=== PATIENT | male | born 1990 | race Caucasian/White ===

== ENCOUNTER 2016-05-23 19:16 | Emergency (ER) | payer SELFPAY ==
[2016-05-23 19:30] VITALS: BP 163/83
[2016-05-23] MEDS ORDERED: Ibuprofen TAB* 400 MG PO ONE (19:42)
--- NOTE | 2016-05-23 20:13 | ED ---
Lower Extremity - HPI Summary HPI Summary: Patient was walking down a hill when he slipped on an icy patch of ground. His ankle inverted and he heard a pop. He was unable to bear weight after the fall - History of Current Complaint Chief Complaint: EDExtremityLower Stated Complaint: RT LEG PAIN Time Seen by Provider: 05/23/16 19:26 Hx Obtained From: Patient Mechanism Of Injury: Twisted Onset of Pain: Hours Onset/Duration: Still Present Severity Initially: Severe Severity Currently: Severe Pain Intensity: 10 Timing: Constant Location: Is Discrete @ - Right ankle Character Of Pain: Sharp, Aching, Stiffness Associated Signs And Symptoms: Positive: Swelling - mild Aggravating Factor(s): Standing, Ambulation, Movement Alleviating Factor(s): Nothing Able to Bear Weight: No - Allergies/Home Medications Allergies/Adverse Reactions: Allergies Allergy/AdvReac Type Severity Reaction Status Date / Time Rizatriptan [From Maxalt] Allergy Severe CHEST PAIN Verified 12/30/15 16:26 Sumatriptan [From Imitrex] Allergy Severe CHEST PAIN Verified 12/30/15 16:26 BEE STING Allergy Severe Anaphylatic Uncoded 12/30/15 16:26 Shock PMH/Surg Hx/FS Hx/Imm Hx Endocrine/Hematology History: Denies: Hx Anticoagulant Therapy, Hx Diabetes, Hx Thyroid Disease Cardiovascular History: Reports: Hx Hypertension - PT STATES NOT FOR HIGH BLOOD PRESSURE FOR PAIN ONLY Denies: Hx Congestive Heart Failure, Hx Pacemaker/ICD Respiratory History: Denies: Hx Asthma, Hx Chronic Obstructive Pulmonary Disease (COPD) History: Denies: Hx Dialysis, Hx Renal Disease, Other Problems/Disorders Sensory History: Reports: Hx Contacts or Glasses Denies: Hx Hearing Aid Opthamlomology History: Reports: Hx Contacts or Glasses Neurological History: Denies: Hx Dementia, Hx Seizures Comment Only: Other Neuro Impairments/Disorders - chiari malformation Psychiatric History: Reports: Hx Substance Abuse Denies: Hx Panic Disorder - Surgical History Surgery Procedure, Year, and Place: SURGERY FOR CHIARI MALFORMATION 11[place]2011 [place] [facility] [place] Immunization History Date of Tetanus Vaccine: 9 years ago Date of Influenza Vaccine: never Infectious Disease History: No Infectious Disease History: Denies: Hx Hepatitis, Hx Human Immunodeficiency Virus (HIV), Traveled Outside the [place] in Last 30 Days - Family History Known Family History: Positive: Cardiac Disease, Diabetes, Seizure Disorder - epilepsy - Social History Occupation: Employed Part-time Lives: Alone Alcohol Use: Rare Substance Use Type: Reports: None, Prescribed Smoking Status (MU): Light Every Day Tobacco Smoker Cessation Counseling: Patient Advised to Stop Review of Systems Positive: Myalgia, Decreased ROM, Edema - mild Negative: Bruising Negative: Weakness, Paresthesia, Numbness All Other Systems Reviewed And Are Negative: Yes Physical Exam Triage Information Reviewed: Yes Vital Signs On Initial Exam: Initial Vitals Temp Pulse Resp BP Pulse Ox 97.6 F 96 16 163/83 97 05/23/16 19:23 05/23/16 19:23 05/23/16 19:23 05/23/16 19:23 05/23/16 19:23 Vital Signs Reviewed: Yes Appearance: Positive: Well-Appearing, Pain Distress, Obese Skin: Positive: Warm, Skin Color Reflects Adequate Perfusion, Dry, Soft Head/Face: Positive: Normal Head/Face Inspection Eyes: Positive: EOMI, KRIS, Conjunctiva Clear ENT: Positive: Hearing grossly normal Respiratory/Lung Sounds: Positive: Breath Sounds Present Cardiovascular: Positive: RRR Musculoskeletal: Positive: Limited @ - dorsiflexion, plantar flexion, inversion and eversion limited due to pain, Pain @ - TTP lateral malleoli, ATFL, Edema Right - mild lateral malleoli Neurological: Positive: Sensory/Motor Intact, Alert, Oriented to Person Place, Time, NV Bundle Intact Distally, Unable to Assess Gait Psychiatric: Positive: Affect/Mood Appropriate AVPU Assessment: Alert Diagnostics - Vital Signs Vital Signs Temp Pulse Resp BP Pulse Ox 05/23/16 19:23 97.6 F 96 16 163/83 97 - Laboratory Lab Statement: Any lab studies that have been ordered have been reviewed, and results considered in the medical decision making process. - Radiology No standard instances Xray Interpretation: No Acute Changes Radiology Interpretation Completed By: Radiologist Lower Extremity Course/Dx - Diagnoses Differential Diagnosis/HQI/PQRI: Positive: Arthritis, Bursitis, Cellulitis, Contusion, Dislocation, Fracture (Closed), Sprain, Strain Provider Diagnoses: Right ankle sprain Discharge - Discharge Plan Condition: Stable Disposition: HOME Patient Education Materials: Ankle Sprain (ED), Ankle Stirrup Splint (ED) [place] [facility] [place] [place] [place]] Additional Instructions: Wear your splint to protect you as your pain improves. You can discontinue use of the splint and crutches as your pain allows. Come out of the splint several times daily to perform gentle range of motion exercises to avoid stiffness. Elevate your ankle above your heart and apply ice for 20 minutes several times daily to decrease swelling and pain. Use ibuprofen 600mg three times daily with meals for the next 3-5 days to decrease swelling and pain as well. Follow-up with your primary care provider if your symptoms do not begin to improve in the next 5-7 days. Return to the emergency department if your symptoms worsen.
--- NOTE | 2016-05-23 20:20 | RAD ---
Indication: Lateral RIGHT ankle pain following inversion injury. Limited range of motion. Unable to flex toes. Comparison: No relevant prior exams available on the [facility] [place] [facility]. Technique: AP, mortise, and lateral views RIGHT ankle. Report: Mild soft tissue swelling over the lateral malleolus. Negative for fracture, osteochondral lesion, or malalignment. No suggestion of joint effusion. IMPRESSION: Mild lateral soft tissue swelling without additional finding.
== END 2016-05-23 21:45 | disposition home or self-care (01) ==
LOC: ED 19:16
DX: S93.401A Sprain of unspecified ligament of right ankle, initial encounter (principal); W00.0XXA Fall on same level due to ice and snow, initial encounter; Y93.01 Activity, walking, marching and hiking; Y92.828 Other wilderness area as the place of occurrence of the external cause; I10 Essential (primary) hypertension; F17.200 Nicotine dependence, unspecified, uncomplicated; Z88.8 Allergy status to other drugs, medicaments and biological substances
CPT/HCPCS: 99282; A9270-GY

== ENCOUNTER 2017-02-22 11:16 | Emergency (ER) | payer OTHER ==
--- NOTE | 2017-02-22 12:24 | RAD ---
INDICATION: Cough. COMPARISON: Comparison is made with a prior chest x-ray study from September 26, 2011. TECHNIQUE: Dual-energy PA and lateral views of the chest were obtained. FINDINGS: The heart is within normal limits in size. Mediastinal and hilar contours appear within normal limits. There is minimal subsegmental atelectasis at the left lung base. The lungs are otherwise clear. No pleural effusion is seen. IMPRESSION: NO EVIDENCE FOR ACTIVE CARDIOPULMONARY DISEASE.
[2017-02-22] MEDS ORDERED: Azithromycin TAB* 250 MG PO ONE (12:26)
[2017-02-22 13:25] VITALS: BP 131/85
--- NOTE | 2017-02-23 08:34 | ED ---
Femi Vargas Angela, scribed for Hever Marie MD on 02/22/17 at 1147 . Respiratory - HPI Summary HPI Summary: This pt is a 27 y/o male presenting to [facility] c/o productive cough x4 weeks. Pt states he had a cold at the end of January and had a fever associated. Since then, his fever has been intermittent. He describes his productive cough as feeling "like there is broken glass." He reports associated SOB (secondary to cough) and headache. Pt denies chest pain, nausea, vomiting, abd pain. Pt has an epi pen for bee stings. PMHx: psoriasis. - History of Current Complaint Chief Complaint: EDUpperRespComplaint Stated Complaint: COUGH, WORSENING/ HEADACHE Time Seen by Provider: 02/22/17 11:42 Hx Obtained From: Patient Onset/Duration: Lasting Weeks, Still Present Timing: Constant Pain Intensity: 3 - out of 10 in severity Character: Cough (Productive) Aggravating Factor(s): Nothing Alleviating Factor(s): Nothing Associated Signs and Symptoms: Fever - intermittent, SOB - Allergy/Home Medications Allergies/Adverse Reactions: Allergies Allergy/AdvReac Type Severity Reaction Status Date / Time Rizatriptan [From Maxalt] Allergy Severe CHEST PAIN Verified 10/19/16 11:44 Sumatriptan [From Imitrex] Allergy Severe CHEST PAIN Verified 10/19/16 11:44 Latex Allergy Rash Verified 02/22/17 11:31 BEE STING Allergy Severe Anaphylatic Uncoded 10/19/16 11:44 Shock PMH/Surg Hx/FS Hx/Imm Hx Endocrine/Hematology History: Denies: Hx Anticoagulant Therapy, Hx Diabetes, Hx Thyroid Disease Cardiovascular History: Reports: Hx Hypertension - PT STATES NOT FOR HIGH BLOOD PRESSURE FOR PAIN ONLY Denies: Hx Congestive Heart Failure, Hx Pacemaker/ICD Respiratory History: Denies: Hx Asthma, Hx Chronic Obstructive Pulmonary Disease (COPD) History: Denies: Hx Dialysis, Hx Renal Disease, Other Problems/Disorders Sensory History: Reports: Hx Contacts or Glasses Denies: Hx Hearing Aid Opthamlomology History: Reports: Hx Contacts or Glasses Neurological History: Denies: Hx Dementia, Hx Seizures Comment Only: Other Neuro Impairments/Disorders - chiari malformation Psychiatric History: Reports: Hx Substance Abuse Denies: Hx Panic Disorder - Surgical History Surgery Procedure, Year, and Place: SURGERY FOR CHIARI MALFORMATION 11/2011 LAMINECTOMY AND CRANIECTOMY [place] [facility] [place] [facility] [place] TESTICULAR SURGERY TO REMOVE CYSTS FROM SURFACE - Immunization History Date of Tetanus Vaccine: 9 years ago Date of Influenza Vaccine: never Infectious Disease History: No Infectious Disease History: Denies: Hx Hepatitis, Hx Human Immunodeficiency Virus (HIV), Traveled Outside the [place] in Last 30 Days - Family History Known Family History: Positive: Cardiac Disease, Diabetes, Seizure Disorder - epilepsy - Social History Alcohol Use: Occasionally Substance Use Type: Reports: None, Prescribed Smoking Status (MU): Light Every Day Tobacco Smoker Review of Systems Positive: Fever - intermittent. Negative: Chills Eyes: Negative ENT: Negative Negative: Chest Pain Positive: Shortness Of Breath - secondary to cough, Cough - productive Gastrointestinal: Negative Genitourinary: Negative Musculoskeletal: Negative Positive: Headache All Other Systems Reviewed And Are Negative: Yes Physical Exam - Summary Physical Exam Summary: VITAL SIGNS: Reviewed. GENERAL: Patient is a well-developed and nourished male who is lying comfortable in the stretcher. Patient is not in any acute respiratory distress. HEAD AND FACE: No signs of trauma. No ecchymosis, hematomas or skull depressions. No sinus tenderness. EYES: PERRLA, EOMI x 2, No injected conjunctiva, no nystagmus. EARS: Hearing grossly intact. Ear canals and tympanic membranes are within normal limits. MOUTH: Oropharynx within normal limits. NECK: Supple, trachea is midline, no adenopathy, no JVD, no carotid bruit, no c- spine tenderness, neck with full ROM. CHEST: Symmetric, no tenderness at palpation LUNGS: There are crackles heard at both bases of the lungs with some slight wheezing. CVS: Regular rate and rhythm, S1 and S2 present, no murmurs or gallops appreciated. ABDOMEN: Soft, non-tender. No signs of distention. No rebound no guarding, and no masses palpated. Bowel sounds are normal. EXTREMITIES: FROM in all major joints, no edema, no cyanosis or clubbing. NEURO: Alert and oriented x 3. No acute neurological deficits. Speech is normal and follows commands. SKIN: Dry and warm Triage Information Reviewed: Yes Vital Signs On Initial Exam: Initial Vitals Temp Pulse Resp BP Pulse Ox 97.9 F 101 20 149/91 97 02/22/17 11:22 02/22/17 11:22 02/22/17 11:22 02/22/17 11:22 02/22/17 11:22 Vital Signs Reviewed: Yes - [place] Coma Scale Coma Scale Total: 15 Diagnostics - Vital Signs Vital Signs Temp Pulse Resp BP Pulse Ox 02/22/17 11:22 97.9 F 101 20 149/91 97 - Laboratory Lab Statement: Any lab studies that have been ordered have been reviewed, and results considered in the medical decision making process. - Radiology Chest XR Xray Interpretation: No Acute Changes - IMPRESSION: No evidence for active cardiopulmonary disease. ED physician has reviewed this radiology report and agrees. Radiology Interpretation Completed By: Radiologist Disposition - Course Assessment/Plan: This pt is a 27 y/o male presenting to [facility] c/o productive cough x4 weeks. Pt states he had a cold at the end of January and had a fever associated. Since then, his fever has been intermittent. He describes his productive cough as feeling "like there is broken glass." He reports associated SOB (secondary to cough) and headache. Pt denies chest pain, nausea, vomiting, abd pain. Pt has an epi pen for bee stings. PMHx: psoriasis. Chest XR shows no evidence for active cardiopulmonary disease. In the ED course, the pt has a productive cough with yellow phlegm, therefore, I think he has bronchitis. He was started on azithromycin and Tessalon tablets. He will be discharged home with follow up from his PCP. Pt is hemodynamically stable, alert and oriented x3. - Diagnoses Provider Diagnoses: Bronchitis Discharge - Discharge Plan Condition: Stable Disposition: HOME Prescriptions: Azithromycin TAB* [Zithromax TAB (Z-MADHAVI) 250 mg #6 tabs] 250 mg PO DAILY #4 tab Benzonatate CAP* [Tessalon 100 MG CAP*] 100 mg PO TID #12 cap Patient Education Materials: Acute Bronchitis (ED) Referrals: Fernando Pena MD [Primary Care Provider] - Additional Instructions: Please follow up with your primary care provider. RETURN TO THE ED FOR ANY WORSENING SYMPTOMS. The documentation as recorded by the Femi dias Angela accurately reflects the service I personally performed and the decisions made by , Hever Marie MD.
== END 2017-02-22 13:24 | disposition home or self-care (01) ==
LOC: ED 11:16
DX: J40 Bronchitis, not specified as acute or chronic (principal); Z88.8 Allergy status to other drugs, medicaments and biological substances; Z91.030 Bee allergy status; Z91.040 Latex allergy status; F17.210 Nicotine dependence, cigarettes, uncomplicated
CPT/HCPCS: 71020; 87070; 87205; 99282; A9270-GY

== ENCOUNTER 2017-04-02 22:52 | Emergency (ER) | payer OTHER ==
[2017-04-03] MEDS ORDERED: Ketorolac INJ* 30 MG/ML 1 ML VIAL IV PUSH ONE (01:37)
[2017-04-03] MEDS ORDERED: NS 0.9% 1000 ML* 1,000 ML IV ONE (01:37)
[2017-04-03] MEDS ORDERED: Tamsulosin CAP* 0.4 MG PO ONE (01:42)
--- NOTE | 2017-04-03 01:42 | ED ---
GI/ HPI - HPI Summary HPI Summary: 27M presents with right flank pain today. He states pain has moved to right abdomen. He denies any testicular pain. He denies any hematuria, dysuria, frequency, or urgency. He denies any nausea, vomiting, or fever. He denies any diarrhea or constipation. He has never had this pain before. no previous abdominal surgeries. took some ibuprofen with minimal relief. normal appetite. No history of kidney stones. has history of HTN. - History of Current Complaint Chief Complaint: EDFlankPain Time Seen by Provider: 04/03/17 01:29 Stated Complaint: ABD PAIN/BACK PAIN Pain Intensity: 8 - Allergy/Home Medications Allergies/Adverse Reactions: Allergies Allergy/AdvReac Type Severity Reaction Status Date / Time Rizatriptan [From Maxalt] Allergy Severe CHEST PAIN Verified 04/03/17 02:15 Sumatriptan [From Imitrex] Allergy Severe CHEST PAIN Verified 04/03/17 02:15 Latex Allergy Rash Verified 04/03/17 02:15 BEE STING Allergy Severe Anaphylatic Uncoded 04/03/17 02:15 Shock PMH/Surg Hx/FS Hx/Imm Hx Endocrine/Hematology History: Denies: Hx Anticoagulant Therapy, Hx Diabetes, Hx Thyroid Disease Cardiovascular History: Reports: Hx Hypertension - PT STATES NOT FOR HIGH BLOOD PRESSURE FOR PAIN ONLY Denies: Hx Congestive Heart Failure, Hx Pacemaker/ICD Respiratory History: Denies: Hx Asthma, Hx Chronic Obstructive Pulmonary Disease (COPD) History: Denies: Hx Dialysis, Hx Renal Disease, Other Problems/Disorders Sensory History: Reports: Hx Contacts or Glasses Denies: Hx Hearing Aid Opthamlomology History: Reports: Hx Contacts or Glasses Neurological History: Denies: Hx Dementia, Hx Seizures Comment Only: Other Neuro Impairments/Disorders - chiari malformation Psychiatric History: Reports: Hx Substance Abuse Denies: Hx Panic Disorder - Surgical History Surgery Procedure, Year, and Place: SURGERY FOR CHIARI MALFORMATION 11/2011 [place]AMINECTOMY [place]CTOMY [place] [facility] TESTICULAR SURGERY TO REMOVE CYSTS FROM SURFACE - Immunization History Date of Tetanus Vaccine: 9 years ago Date of Influenza Vaccine: never Infectious Disease History: No Infectious Disease History: Denies: Hx Hepatitis, Hx Human Immunodeficiency Virus (HIV), Traveled Outside the [place] in Last 30 Days - Family History Known Family History: Positive: Cardiac Disease, Diabetes, Seizure Disorder - epilepsy - Social History Alcohol Use: Occasionally Substance Use Type: Reports: None, Prescribed Hx Tobacco Use: Yes Smoking Status (MU): Light Every Day Tobacco Smoker Review of Systems Negative: Fever Negative: Chest Pain Negative: Shortness Of Breath Positive: Abdominal Pain. Negative: Vomiting, Diarrhea, Nausea Positive: flank pain All Other Systems Reviewed And Are Negative: Yes Physical Exam Triage Information Reviewed: Yes Vital Signs On Initial Exam: Initial Vitals Temp Pulse Resp BP Pulse Ox 97.7 F 103 16 136/90 98 04/02/17 22:59 04/02/17 22:59 04/02/17 22:59 04/02/17 22:59 04/02/17 22:59 Vital Signs Reviewed: Yes Appearance: Positive: Well-Appearing Skin: Positive: Warm, Dry Head/Face: Positive: Normal Head/Face Inspection Eyes: Positive: Normal, EOMI, KRIS, Conjunctiva Clear ENT: Positive: Normal ENT inspection, Pharynx normal, TMs normal Respiratory/Lung Sounds: Positive: Clear to Auscultation, Breath Sounds Present Cardiovascular: Positive: Normal, RRR Abdomen Description: Positive: Soft, CVA Tenderness (R), Other: - mild right sided abdominal tenderness Bowel Sounds: Positive: Present Musculoskeletal: Positive: Normal Neurological: Positive: Normal Psychiatric: Positive: Normal Diagnostics - Vital Signs Vital Signs Temp Pulse Resp BP Pulse Ox 04/02/17 22:59 97.7 F 103 16 136/90 98 - Laboratory Result Diagrams: 04/03/17 02:55 04/03/17 02:55 Lab Statement: Any lab studies that have been ordered have been reviewed, and results considered in the medical decision making process. - CT abd CT Interpretation: Positive (See Comments) - questionable minimial hydronephrosis with punctate less than 1mm, stone in proximal right urter. 5mm stone in lower pole the right kidney CT Interpretation Completed By: Radiologist CARLEE Course/Dx - Course Course Of Treatment: 27M presents with right flank pain today. He states pain has moved to right abdomen. He denies any testicular pain. He denies any hematuria, dysuria, frequency, or urgency. He denies any nausea, vomiting, or fever. He denies any diarrhea or constipation. He has never had this pain before. no previous abdominal surgeries. took some ibuprofen with minimal relief. normal appetite. No history of kidney stones. has history of HTN. exam pos CVA tenderness right. tender on right side abdomen. labs normal wbc. no infection urine. CT shows small 1mm stone. will treat with pain medication, flomax, zofran, and urology referral. patient understand and agrees with plan. - Diagnoses Differential Diagnoses - Male: Appendicitis, Pyelonephritis, Ureteral Calculi, Urinary Tract Infection Provider Diagnoses: Kidney stone Discharge - Discharge Plan Condition: Good Disposition: HOME Prescriptions: Ondansetron ODT TAB* [Zofran 4 MG Odt TAB*] 4 mg PO Q6H PRN #10 tab.odt PRN Reason: Nausea oxyCODONE/Acetamin 5/325 MG* [Percocet 5/325 TAB*] 1 tab PO Q6H PRN #10 tab MDD 4 PRN Reason: Pain Tamsulosin CAP* [Flomax CAP*] 0.4 mg PO DAILY #5 cap Patient Education Materials: Kidney Stones (ED) Referrals: Fernando Pena MD [Primary Care Provider] - Bebeto Hawthorne MD [Medical Doctor] - Additional Instructions: Take ibuprofen every 6 hours and narcotic as needed every 6 hours Take Zofran every 6 hours for nausea as needed Take Flomax daily starting tomorrow, first dose given in ED until stone expelled , make sure stand up slowly Follow up with urology, call office tomorrow for appointment Strain urine until collect stone Return to ED if unable to manage pain at home, develop fever, or any new or worsening symptoms
[2017-04-03] MEDS ORDERED: oxyCODONE/Acetamin 5/325 MG* TAB PO ONE ×2 (02:29→03:18)
[2017-04-03 02:54] LABS: ALT 54 U/L (7-52); Albumin 4.1 g/dL (3.2-5.2); Alkaline Phosphatase 73 U/L (34-104); BUN/Creatinine Ratio 13.6 (8-20); Blood Urea Nitrogen 11 mg/dL (6-24); CO2 Carbon Dioxide 23 mmol/L (22-32); Calcium 9.2 mg/dL (8.6-10.3); Chloride 102 mmol/L (101-111); EGFR Non-African American 114.3 (>60); Globulin 3.1 g/dL (2-4); Glucose 102 mg/dL (70-100); Lipase 23 U/L (11.0-82.0); Sodium 132 mmol/L (133-145); Total Protein 7.2 g/dL (6.4-8.9)
[2017-04-03 02:56] LABS: Anion Gap 7 mmol/L (2-11)
[2017-04-03 03:04] LABS: Hematocrit 46 % (42-52); Hemoglobin 15.8 g/dl (14.0-18.0); Mean Corpuscular HGB Conc 35 g/dl (31-36); Mean Corpuscular Hemoglobin 32 pg (27-31); Mean Corpuscular Volume 93 fL (80-94); Mean Platelet Volume 7 um3 (7.4-10.4); Red Blood Count 4.89 10^6/ul (4.0-5.4); Red Cell Distribution Width 13 % (10.5-15); White Blood Count 10.5 10^3/ul (3.5-10.8)
[2017-04-03 03:08] LABS: Urine Bacteria Absent (Absent); Urine Bilirubin Negative (Negative); Urine Glucose Negative (Negative); Urine Nitrite Negative (Negative)
[2017-04-03] MEDS ORDERED: Ondansetron ODT TAB* 4 MG PO ONE (03:19)
[2017-04-03 04:04] VITALS: BP 131/84
--- NOTE | 2017-04-03 08:12 | RAD ---
Indication: Right flank pain, back pain. CT of the abdomen and pelvis was performed without oral or IV contrast demonstration. Coronal and sagittal reconstructed images were obtained. Lung bases demonstrate no pleural fluid, nodules or masses. Heart is of normal size without evidence of pericardial effusion. Liver is normal in size. No focal lesions or intrahepatic ductal dilatation is noted. The gallbladder demonstrates no calcified gallstones. No pericholecystic fluid or wall thickening is identified. The common duct is not dilated. The spleen is normal in size. The pancreas demonstrates no mass or pancreatic ductal dilatation. The common duct is not dilated. No adrenal lesions are noted. Minimal fullness of the right renal collecting system. There is a tiny 1 mm calculi in the proximal right ureter at approximately the L3 level. Additional calculi measuring 6 mm in the lower pole of the right kidney. The left renal collecting system is unremarkable. No retroperitoneal adenopathy is noted. No dilated loops of bowel are noted. CT of the pelvis demonstrates no retroperitoneal or pelvic lymphadenopathy. The colon is filled with stool. No dilated loops of bowel are noted the appendix is visualized and is normal. No pelvic adenopathy is noted. The urinary bladder is otherwise unremarkable. There is suggestion of broad-based protrusion asymmetric towards the left resulting in left foraminal stenosis. I cannot totally exclude impingement of the left descending S1 nerve root. IMPRESSION: 1 mm calculus at the proximal ureter at the L3 level. Calculus in the lower pole of the right kidney measuring up to 6 mm. Broad-based protrusion at L5-S1 with focal protrusion. There is suggestion of left foraminal stenosis.
== END 2017-04-03 04:00 | disposition home or self-care (01) ==
LOC: ED 22:52
DX: N20.0 Calculus of kidney (principal); R10.84 Generalized abdominal pain; F17.210 Nicotine dependence, cigarettes, uncomplicated
CPT/HCPCS: 36415; 74176; 80053; 81003; 81015; 83690; 85025; 86141; 99285; A9270-GY

== ENCOUNTER 2017-10-21 22:29 | Emergency (ER) | payer OTHER ==
[2017-10-22] MEDS ORDERED: Bacitracin OINTMENT* 0.5% 0.5 oz TUBE TOPICAL ONE (00:27)
--- NOTE | 2017-10-22 00:57 | ED ---
Skin Complaint - HPI Summary HPI Summary: Complains of wound and pain at volar base of fifth digit on left foot starting today. Denies trauma. Medical history is psoriasis. Denies fever, redness, purulent drainage, swelling to left lower extremity. - History of Current Complaint Chief Complaint: EDExtremityLower Time Seen by Provider: 10/21/17 23:45 Stated Complaint: LT PINKY TOE INJURY Hx Obtained From: Patient Onset/Duration: Started Hours Ago Timing: Constant Onset Severity: Mild Current Severity: Moderate Pain Intensity: 6 Pain Scale Used: 0-10 Numeric Associated Signs & Symptoms: Negative - Allergy/Home Medications Allergies/Adverse Reactions: Allergies Allergy/AdvReac Type Severity Reaction Status Date / Time bee venom protein (honey bee) Allergy Anaphylatic Verified 10/21/17 22:39 Shock latex Allergy Rash Verified 10/21/17 22:39 rizatriptan [From Maxalt] Allergy See Comment Verified 10/21/17 22:39 sumatriptan [From Imitrex] Allergy See Comment Verified 10/21/17 22:39 Home Medications: Home Medications Albuterol HFA INHALER* [Ventolin HFA Inhaler*] 2 puff INH Q6H PRN 10/21/17 [ History Confirmed 10/21/17] Budesonide Flexhaler 180 (NF) [Pulmicort Flexhaler 180 mcg/act (NF)] 180 mcg IN Q24HR PRN 10/21/17 [History Confirmed 10/21/17] Cetirizine* [ZyrTEC 10 MG TAB*] 10 mg PO DAILY 10/21/17 [History Confirmed 10/21] Gabapentin 600 mg PO BEDTIME 10/21/17 [History Confirmed 10/21/17] Gabapentin [Neurontin] 300 mg PO TID 10/21/17 [History Confirmed 10/21/17] Prochlorperazine TAB* [Compazine Tab*] 10 mg PO Q6H PRN 10/21/17 [History Confirmed 10/21/17] Varenicline Tartrate [Chantix] 1 mg PO BID 10/21/17 [History Confirmed 10/21/17] PMH/Surg Hx/FS Hx/Imm Hx Endocrine/Hematology History: Denies: Hx Anticoagulant Therapy, Hx Diabetes, Hx Thyroid Disease Cardiovascular History: Reports: Hx Hypertension - PT STATES NOT FOR HIGH BLOOD PRESSURE FOR PAIN ONLY Denies: Hx Congestive Heart Failure, Hx Pacemaker/ICD Respiratory History: Denies: Hx Asthma, Hx Chronic Obstructive Pulmonary Disease (COPD) History: Reports: Hx Kidney Stones - RIGHT Denies: Hx Dialysis, Hx Renal Disease, Other Problems/Disorders Sensory History: Reports: Hx Contacts or Glasses Denies: Hx Hearing Aid Opthamlomology History: Reports: Hx Contacts or Glasses Neurological History: Denies: Hx Dementia, Hx Seizures Comment Only: Other Neuro Impairments/Disorders - chiari malformation Psychiatric History: Reports: Hx Substance Abuse Denies: Hx Panic Disorder - Surgical History Surgery Procedure, Year, and Place: SURGERY FOR CHIARI MALFORMATION 11/2011 [place] [facility] [place] TESTIC[place] TO REMOVE CYSTS FROM SURFACE - Immunization History Date of Tetanus Vaccine: 9 years ago Date of Influenza Vaccine: never Infectious Disease History: No Infectious Disease History: Denies: Hx Hepatitis, Hx Human Immunodeficiency Virus (HIV), Traveled Outside the [place] in Last 30 Days - Family History Known Family History: Positive: Cardiac Disease, Diabetes, Seizure Disorder - epilepsy - Social History Alcohol Use: Occasionally Substance Use Type: Reports: None Hx Tobacco Use: Yes Smoking Status (MU): Light Every Day Tobacco Smoker Review of Systems Constitutional: Negative Eyes: Negative ENT: Negative Cardiovascular: Negative Respiratory: Negative Gastrointestinal: Negative Genitourinary: Negative Musculoskeletal: Negative Skin: Negative Neurological: Negative Psychological: Normal All Other Systems Reviewed And Are Negative: Yes Physical Exam - Summary Physical Exam Summary: 1 cm area of superficial skin separation at volar base of left fifth digit. No erythema, extra warmth, swelling, bleeding, deformity noted. Wound clean and dry. Triage Information Reviewed: Yes Vital Signs On Initial Exam: Initial Vitals Temp Pulse Resp BP Pulse Ox 98.9 F 112 18 125/95 96 10/21/17 22:31 10/21/17 22:31 10/21/17 22:31 10/21/17 22:31 10/21/17 22:31 Vital Signs Reviewed: Yes Appearance: Positive: Well-Appearing Skin: Positive: Warm Head/Face: Positive: Normal Head/Face Inspection Eyes: Positive: Normal Neck: Positive: Supple Respiratory/Lung Sounds: Positive: Clear to Auscultation Cardiovascular: Positive: Normal Abdomen Description: Positive: Nontender Musculoskeletal: Positive: Normal Neurological: Positive: Normal Psychiatric: Positive: Normal AVPU Assessment: Alert - [place] Coma Scale Best Eye Response: 4 - Spontaneous Best Motor Response: 6 - Obeys Commands Best Verbal Response: 5 - Oriented Coma Scale Total: 15 Diagnostics - Vital Signs Vital Signs Temp Pulse Resp BP Pulse Ox 10/21/17 22:31 98.9 F 112 18 125/95 96 - Laboratory Lab Statement: Any lab studies that have been ordered have been reviewed, and results considered in the medical decision making process. Course/Dx - Course Course Of Treatment: Complains of wound and pain at volar base of fifth digit on left foot starting today. Denies trauma. Medical history is psoriasis. Denies fever, redness, purulent drainage, swelling to left lower extremity.1 cm area of superficial skin separation at volar base of left fifth digit. No erythema, extra warmth, swelling, bleeding, deformity noted. Wound clean and dry. Bacitracin place and a superficial wound, packed with gauze to keep toe from pad of foot and allow wound to dry. Advised patient to continue with same for a week. - Diagnoses Provider Diagnoses: Skin ulcer Discharge - Sign-Out/Discharge Documenting (check all that apply): Discharge/Admit/Transfer - Discharge Plan Condition: Stable Disposition: HOME Patient Education Materials: Acute Wound Care (ED), Acute Wounds (ED) Referrals: Fernando Pena MD [Primary Care Provider] - Additional Instructions: Placed bacitracin and wound. Use pads to keep toe extended to allow the skin to dry. Follow-up with primary care. Return to the ED for any new or worsening symptoms - Billing Disposition and Condition Condition: STABLE Disposition: Home
[2017-10-22 01:15] VITALS: BP 139/92
== END 2017-10-22 01:19 | disposition home or self-care (01) ==
LOC: ED 22:29
DX: L98.499 Non-pressure chronic ulcer of skin of other sites with unspecified severity (principal); F17.210 Nicotine dependence, cigarettes, uncomplicated
CPT/HCPCS: 99282; A9270-GY

== ENCOUNTER 2017-11-29 11:11 | Day surgery (SDC) | payer MEDICAID ==
--- NOTE | 2017-11-20 19:21 | HP ---
CC: Dr. Pena * ADMITTING HISTORY AND PHYSICAL: DATE OF ADMISSION: 11/29/17 ADMITTING DIAGNOSIS: Multiple scrotal cysts. PLANNED PROCEDURE: Excision of multiple scrotal cysts (with local and intravenous sedation). SURGEON: Dr. Hawthorne. ADMITTING HISTORY AND PHYSICAL: Sage Zaragoza is a 27-year-old gentleman with a history of very extensive scrotal cysts who had undergone excision of more than half of the scrotal cysts in 2014. He would like the remaining cysts removed and is now being brought in for excision of the scrotal cysts. PAST MEDICAL HISTORY: Significant for Chiari malformation, psoriasis, and renal calculi, and Dorsey's palsy. MEDICATIONS: On admission: 1. Gabapentin 100 mg 1 to 3 capsule by mouth 3 times a day as needed for pain. 2. Tizanidine 4 mg 3 times daily as needed for muscle spasm. 3. Ventolin 1 to 2 puffs inhaled every 4 hours as needed for wheezing. 4. Pulmicort 2 puffs inhaled twice daily. ALLERGIES AND INTOLERANCES: SUMATRIPTAN and MAXALT. PHYSICAL EXAMINATION GENERAL: Reveals a pleasant, overweight, young gentleman. VITAL SIGNS: Blood pressure is 140/80; pulse 101 per minute, regular; oxygen saturation 98% on room air. LUNGS: Clear bilaterally. CARDIOVASCULAR: Regular rate and rhythm. S1, S2. ABDOMEN: Soft without masses. Testicles are descended bilaterally and are normal. Multiple scrotal cysts are noted on the left side of the scrotum and scarring is noted at the site of previous cyst excision. PLAN: I had a detailed discussion with Sage regarding the excision of the scrotal cysts and explained the possible risks of bleeding, infection, altered appearance of the scrotum and scarring. He understands and wishes to proceed as planned with excision of the scrotal cysts. [id number]/[facility] #: [id number] MTDD
[~2017-11-29 11:11] MED LIST: Buffered Lidocaine 0.9% SYRIN* 5 ML/SYR SYRINGE INTRADERM ONE; Levalbuterol 1.25MG/0.5ML NEB INH PRN; Sodium Citrate/Citric Acid* 15 ML UDC PO ONE
[2017-11-29] MEDS ORDERED: Ondansetron INJ* 2 MG/ML VIAL IV PRN (11:22)
[2017-11-29] MEDS ORDERED: HYDROcodone/ACETAMIN 5-325 MG* 1 TAB PO PRN ×2 (11:22)
[2017-11-29] MEDS ORDERED: PROCHLORPERAZINE INJ 5 MG/ML 2 ML VIAL IV PRN (11:22)
[2017-11-29] MEDS ORDERED: Naloxone* 0.4 MG/ML 1 ML VIAL IV PRN (11:22)
[2017-11-29] MEDS ORDERED: Levalbuterol 1.25MG/0.5ML NEB INH PRN (11:22)
[2017-11-29] MEDS ORDERED: fentaNYL* 50 MCG/ML 2 ML VIAL (100 MCG VIAL) IV PRN (11:22)
[2017-11-29] MEDS ORDERED: Acetaminophen TAB* 325 MG PO PRN (11:22)
[2017-11-29] MEDS ORDERED: DiMENhydriNATE IV* 50 MG/ML VIAL IV PUSH PRN (11:22)
[2017-11-29] MEDS ORDERED: cefTRIAXone(*) 2 GM ADDV.VIAL IVPB ONE (11:24)
[2017-11-29] MEDS ORDERED: Sodium Citrate/Citric Acid* 15 ML UDC ONE (11:54)
[2017-11-29] MEDS ORDERED: Levalbuterol 0.63MG/3ML NEB* UNIT OF USE INH ONE (11:54)
[2017-11-29] MEDS ORDERED: Levalbuterol 1.25MG/0.5ML NEB ONE (11:58)
[2017-11-29] MEDS ORDERED: Lidocaine 1%* 5 ML VIAL ONE ×2 (12:03→12:06)
[2017-11-29] MEDS ORDERED: Lidocaine 1% INJ* 10 MG/ML 30 ML SDV ONE (12:07)
[2017-11-29] MEDS ORDERED: fentaNYL* 50 MCG/ML 2 ML VIAL (100 MCG VIAL) ONE (12:07)
[2017-11-29] MEDS ORDERED: Midazolam* 1 MG/ML 5 ML VIAL (5 MG) ONE (12:07)
[2017-11-29] MEDS ORDERED: Midazolam* 1 MG/ML 2 ML VIAL (2 MG) ONE (12:42)
[2017-11-29 14:24] VITALS: BP 131/88
--- NOTE | 2017-11-30 11:12 | OP ---
CC: Dr. Fernando Pena * DATE OF OPERATION: 11/29/17 - SDS DATE OF : 89 SURGEON: Bebeto Hawthorne MD ANESTHESIOLOGIST: Dr. Coy. ANESTHESIA: Local plus intravenous sedation. PRE-OP DIAGNOSIS: Multiple scrotal cysts. POST-OP DIAGNOSIS: Multiple scrotal cysts. OPERATIVE PROCEDURE: Excision of multiple scrotal cysts. COMPLICATIONS: None. INDICATIONS: Sage Zaragoza is a 27-year-old gentleman who has a history of extensive bilateral scrotal cysts. He had previously undergone excision of multiple right-sided scrotal cysts, a couple of years ago and now would like to have the remaining cysts removed. OPERATIVE FINDINGS: Multiple scrotal cysts covering large part of left hemiscrotum. POSTOPERATIVE CONDITION: Stable. BLOOD LOSS: Minimal. DESCRIPTION OF PROCEDURE: After administration of intravenous sedation, external genitalia was prepped and draped in the usual sterile fashion. There was one very large cyst measuring about 3 to 4 cm in size with another smaller cyst and two other smaller cysts, all within the area of the left hemiscrotum. The skin and subcutaneous tissue around and below the cysts was infiltrated with 1% lidocaine. Next, the cysts were all excised using the scalpel and the base was carefully cauterized with electrocautery. The subcutaneous tissue was approximated using interrupted sutures of 3-0 Vicryl and skin was approximated using 4-0 chromic horizontal mattress sutures. All of the visible cysts were completely excised and hemostasis appeared satisfactory at the end of the procedure. The patient tolerated the procedure satisfactorily and was transferred back to the recovery area in stable condition. [id number]/[facility] #: [id number] MTDD
== END 2017-11-29 14:26 | disposition home or self-care (01) ==
LOC: OR 11:11
PROVIDERS: ATTEND Urology
DX: L72.0 Epidermal cyst (principal); G93.5 Compression of brain; L40.9 Psoriasis, unspecified; Z87.442 Personal history of urinary calculi; J45.909 Unspecified asthma, uncomplicated
CPT/HCPCS: 88304; A9270-GY; J0696; J2250; J3010

== ENCOUNTER 2017-12-09 04:22 | Emergency (ER) | payer MEDICAID ==
--- NOTE | 2017-12-09 05:41 | ED ---
Lower Extremity - HPI Summary HPI Summary: This is arun Mccann documenting for attending Dr. Malcom Shelton MD. A 27 y/o male presents to ED c/o stitch opening on left and pain reaching 6/10 in severity. As per triage, Pt is s/p surgical removal of scrotal cysts . Pt states that he went to the bathroom this date 041, and realized that he was bleeding out of one of the incisions". According to the patient he was seen by Dr. Hawthorne for cyst removal from his scrotum recently and he noted that the bottom split open and is bleeding. He noticed it 30 minutes ago. Denies any fever. Patient noted that the stitches are dissolvable. Patient will see Dr. Hawthorne on Monday. - History of Current Complaint Chief Complaint: EDUrogenitalProblems Stated Complaint: POST SURGERY PROBLEM Time Seen by Provider: 12/09/17 04:41 Hx Obtained From: Patient Mechanism Of Injury: Unknown Onset of Pain: Minutes Onset/Duration: Still Present Severity Initially: Moderate Severity Currently: Moderate Pain Intensity: 6 Pain Scale Used: 0-10 Numeric Timing: Constant Associated Signs And Symptoms: Positive: Other - Bleeding Aggravating Factor(s): Nothing Alleviating Factor(s): Nothing Able to Bear Weight: Yes - Allergies/Home Medications Allergies/Adverse Reactions: Allergies Allergy/AdvReac Type Severity Reaction Status Date / Time bee venom protein (honey bee) Allergy Severe Anaphylatic Verified 12/09/17 04:28 Shock rizatriptan [From Maxalt] Allergy Intermediate See Comment Verified 12/09/17 04: 28 sumatriptan [From Imitrex] Allergy Intermediate See Comment Verified 12/09/17 04 :28 latex Allergy Mild Rash Verified 12/09/17 04:28 Home Medications: Home Medications Oxybutynin TAB* [Ditropan TAB*] 5 mg PO TID PRN 12/09/17 [History Confirmed 08/23] PMH/Surg Hx/FS Hx/Imm Hx Endocrine/Hematology History: Denies: Hx Anticoagulant Therapy, Hx Bone Marrow Disease, Hx Diabetes, Hx Sickle Cell Disease, Hx Thyroid Disease, Hx Anemia Cardiovascular History: Denies: Hx Congestive Heart Failure, Hx Hypertension, Hx Pacemaker/ICD Respiratory History: Reports: Other Respiratory Problems/Disorders Denies: Hx Asthma, Hx Chronic Obstructive Pulmonary Disease (COPD) History: Reports: Hx Kidney Stones - RIGHT KIDNEY, Other Problems/ Disorders - HX OF SCROTAL SEBACEOUS CYSTS Denies: Hx Dialysis, Hx Renal Disease Sensory History: Reports: Hx Contacts or Glasses - GLASSES Denies: Hx Cataracts, Hx Glaucoma, Hx Hearing Aid Opthamlomology History: Reports: Hx Contacts or Glasses - GLASSES Denies: Hx Cataracts, Hx Glaucoma Neurological History: Reports: Hx Migraine - NOT RECENT, Other Neuro Impairments /Disorders - CHIARI MALFORMATION, SURGERY 11/16 Denies: Hx Dementia, Hx Seizures Psychiatric History: Reports: Hx Substance Abuse Denies: Hx Panic Disorder - Surgical History Surgery Procedure, Year, and Place: SURGERY FOR CHIARI MALFORMATION 11/2011 [facility] [place]. LAMINECTOMY AND CRANIECTOMY 11/16 [facility] [place] ;. EXCISION OF SCROTAL SEBACEOUS CYSTS 2014 [facility] [place] Hx Anesthesia Reactions: Yes - POST BRAIN SURG- SEVERE N/V - Immunization History Date of Tetanus Vaccine: 9 years ago Date of Influenza Vaccine: never Infectious Disease History: No Infectious Disease History: Denies: Hx Hepatitis, Hx Human Immunodeficiency Virus (HIV), Traveled Outside the [place] in Last 30 Days - Family History Known Family History: Positive: Cardiac Disease, Diabetes, Seizure Disorder - epilepsy - Social History Alcohol Use: Rare Alcohol Amount: 1-2 YR Substance Use Type: Reports: Excessive Caffeine Substance Use Comment - Amount & Last Used: 4-5 10 OZ SODA/DAY Hx Tobacco Use: Yes Smoking Status (MU): Light Every Day Tobacco Smoker Type: Cigarettes Amount Used/How Often: 5-6/DAY FOR 10 YRS Length of Time of Smoking/Using Tobacco: 10 YRS Have You Smoked in the Last Year: Yes Review of Systems Negative: Fever Positive: pain Positive: Other - POSITIVE: Laceration on scrotum All Other Systems Reviewed And Are Negative: Yes Physical Exam - Summary Physical Exam Summary: VITAL SIGNS: Reviewed. GENERAL: Patient is a well-developed and nourished male who is lying comfortable in the stretcher. Patient is not in any acute respiratory distress. HEAD AND FACE: No signs of trauma. No ecchymosis, hematomas or skull depressions. No sinus tenderness. EYES: PERRLA, EOMI x 2, No injected conjunctiva, no nystagmus. EARS: Hearing grossly intact. Ear canals and tympanic membranes are within normal limits. MOUTH: Oropharynx within normal limits. NECK: Supple, trachea is midline, no adenopathy, no JVD, no carotid bruit, no c- spine tenderness, neck with full ROM. CHEST: Symmetric, no tenderness at palpation LUNGS: Clear to auscultation bilaterally. No wheezing or crackles. CVS: Regular rate and rhythm, S1 and S2 present, no murmurs or gallops appreciated. ABDOMEN: Soft, non-tender. No signs of distention. No rebound no guarding, and no masses palpated. Bowel sounds are normal. EXTREMITIES: FROM in all major joints, no edema, no cyanosis or clubbing. NEURO: Alert and oriented x 3. No acute neurological deficits. Speech is normal and follows commands. SKIN: Dry and warm. 1 inch surgical incision, slightly open HR, slight separation, no signs of infection on left scrotum. Triage Information Reviewed: Yes Vital Signs On Initial Exam: Initial Vitals Temp Pulse Resp BP Pulse Ox 97.9 F 97 16 164/93 95 12/09/17 04:23 12/09/17 04:23 12/09/17 04:23 12/09/17 04:23 12/09/17 04:23 Vital Signs Reviewed: Yes Procedures - Laceration/Wound Repair 1 Location: Other - Left scrotum Closure: SteriStrips Diagnostics - Vital Signs Vital Signs Temp Pulse Resp BP Pulse Ox 12/09/17 04:23 97.9 F 97 16 164/93 95 - Laboratory Lab Statement: Any lab studies that have been ordered have been reviewed, and results considered in the medical decision making process. Re-Evaluation - Re-Evaluation First Eval Re-Evaluation Time: 05:03 Comment: Discussed plan and fixed laceration on scrotum. Lower Extremity Course/Dx - Course Course Of Treatment: A 27 y/o male presents to ED c/o stitch opening on left and pain reaching 6/10 in severity. No laboratory scans were done. In the ED course, the patient receieved no medications. Patient's laceration was fixed using steristrips. Patient will be discharged with a diagnosis of wound dehiscence. Patient is to follow up with Urologist, Dr. Hawthorne, on Monday. Patient is agreeable with this plan. - Diagnoses Provider Diagnoses: Wound dehiscence Discharge - Sign-Out/Discharge Documenting (check all that apply): Patient Departure - DISCHARGE - Discharge Plan Condition: Stable Disposition: HOME Patient Education Materials: Laceration (ED), Wound Dehiscence (ED) Referrals: Fernando Pena MD [Primary Care Provider] - Bebeto Hawthorne MD [Medical Doctor] - 2 Days Additional Instructions: FOLLOW UP WITH UROLOGIST, DR. HAWTHORNE, ON MONDAY. RETURN TO ED FOR ANY NEW OR WORSENING SYMPTOMS.
[2017-12-09 06:11] VITALS: BP 154/85
== END 2017-12-09 06:10 | disposition home or self-care (01) ==
LOC: ED 04:22
DX: T81.30XA Disruption of wound, unspecified, initial encounter (principal); S31.31XA Laceration without foreign body of scrotum and testes, initial encounter; F17.210 Nicotine dependence, cigarettes, uncomplicated; X58.XXXA Exposure to other specified factors, initial encounter; Y92.9 Unspecified place or not applicable; Z98.890 Other specified postprocedural states
CPT/HCPCS: 99282

== ENCOUNTER 2018-09-03 18:28 | Emergency (ER) | payer MEDICAID, OTHER ==
[2018-09-03] MEDS ORDERED: Cephalexin CAP* 500 MG PO ONE (19:21)
--- NOTE | 2018-09-03 19:24 | ED ---
Skin Complaint - HPI Summary HPI Summary: Patient concerned he has a possible laceration to the inside of his belly button and that it might be infected. States last night navel started bleeding and leaking pus. No active bleeding or pus at this time. Denies trauma, fever , cough, sore throat, CP, SOB, N/V/D, abdominal pain, change in urine, change in BM. Medical history is none. - History of Current Complaint Chief Complaint: EDLacSutureRecheck Time Seen by Provider: 09/03/18 18:33 Stated Complaint: I THINK I GOT A CUT INSIDE MY BELLY BUTTON PER PT Hx Obtained From: Patient Onset/Duration: Started Hours Ago Skin Exposure Onset/Duration: Hours Ago Timing: Intermittent Current Severity: None Pain Intensity: 0 Pain Scale Used: 0-10 Numeric Alleviating Symptom(s): Nothing Associated Signs & Symptoms: Negative - Allergy/Home Medications Allergies/Adverse Reactions: Allergies Allergy/AdvReac Type Severity Reaction Status Date / Time bee venom protein (honey bee) Allergy Severe Anaphylatic Verified 09/03/18 18:31 Shock rizatriptan [From Maxalt] Allergy Intermediate See Comment Verified 09/03/18 18: 31 sumatriptan [From Imitrex] Allergy Intermediate See Comment Verified 09/03/18 18 :31 latex Allergy Mild Rash Verified 09/03/18 18:31 Home Medications: Home Medications Topiramate 1 - 2 tab PO DAILY 09/03/18 [History Confirmed 09/03/18] PMH/Surg Hx/FS Hx/Imm Hx Endocrine/Hematology History: Denies: Hx Anticoagulant Therapy, Hx Bone Marrow Disease, Hx Diabetes, Hx Sickle Cell Disease, Hx Thyroid Disease, Hx Anemia Cardiovascular History: Denies: Hx Congestive Heart Failure, Hx Hypertension, Hx Pacemaker/ICD Respiratory History: Reports: Other Respiratory Problems/Disorders Denies: Hx Asthma, Hx Chronic Obstructive Pulmonary Disease (COPD) History: Reports: Hx Kidney Stones - RIGHT KIDNEY, Other Problems/ Disorders - HX OF SCROTAL SEBACEOUS CYSTS Denies: Hx Dialysis, Hx Renal Disease Sensory History: Reports: Hx Contacts or Glasses - GLASSES Denies: Hx Cataracts, Hx Glaucoma, Hx Hearing Aid Opthamlomology History: Reports: Hx Contacts or Glasses - GLASSES Denies: Hx Cataracts, Hx Glaucoma Neurological History: Reports: Hx Migraine - NOT RECENT, Other Neuro Impairments /Disorders - CHIARI MALFORMATION, SURGERY 11/16 Denies: Hx Dementia, Hx Seizures Psychiatric History: Reports: Hx Substance Abuse Denies: Hx Panic Disorder - Surgical History Surgery Procedure, Year, and Place: SURGERY FOR CHIARI MALFORMATION [place] [facility] [place] LAMINECTOMY AND CRANIECTOMY 11[place] [facility] [place]. EXCISION OF SCROTAL SEBACEOUS CYSTS [place] [facility] [place]x Anesthesia Reactions: Yes - POST BRAIN SURG- SEVERE N/V - Immunization History Date of Tetanus Vaccine: 9 years ago Date of Influenza Vaccine: never Infectious Disease History: No Infectious Disease History: Denies: Hx Hepatitis, Hx Human Immunodeficiency Virus (HIV), Traveled Outside the [place] in Last 30 Days - Family History Known Family History: Positive: Cardiac Disease, Diabetes, Seizure Disorder - epilepsy - Social History Alcohol Use: Rare Alcohol Amount: 1-2 YR Substance Use Type: Reports: Excessive Caffeine Substance Use Comment - Amount & Last Used: 4-5 10 OZ SODA/DAY Hx Tobacco Use: Yes Smoking Status (MU): Heavy Every Day Tobacco Smoker Type: Cigarettes Amount Used/How Often: 5-6/DAY FOR 10 YRS Length of Time of Smoking/Using Tobacco: 10 YRS Have You Smoked in the Last Year: Yes Review of Systems Constitutional: Negative Eyes: Negative ENT: Negative Cardiovascular: Negative Respiratory: Negative Gastrointestinal: Negative Genitourinary: Negative Musculoskeletal: Negative Skin: Negative Neurological: Negative Psychological: Normal All Other Systems Reviewed And Are Negative: Yes Physical Exam - Summary Physical Exam Summary: No active bleeding or pus noted to umbilicus. No foul odor. Some mild erythema locally. No ecchymosis, extra warmth or indication of abscess noted. Abdomen soft nontender. Lung sounds clear to auscultation bilaterally. RRR. Triage Information Reviewed: Yes Vital Signs On Initial Exam: Initial Vitals Temp Pulse Resp BP Pulse Ox 98.0 F 107 18 156/94 99 09/03/18 18:29 09/03/18 18:29 09/03/18 18:29 09/03/18 18:29 09/03/18 18:29 Vital Signs Reviewed: Yes Appearance: Positive: Well-Appearing Skin: Positive: Warm Head/Face: Positive: Normal Head/Face Inspection Eyes: Positive: Normal Neck: Positive: Supple Respiratory/Lung Sounds: Positive: Clear to Auscultation Cardiovascular: Positive: Normal Abdomen Description: Positive: Nontender Musculoskeletal: Positive: Normal Neurological: Positive: Normal Psychiatric: Positive: Normal AVPU Assessment: Alert - [place] Coma Scale Best Eye Response: 4 - Spontaneous Best Motor Response: 6 - Obeys Commands Best Verbal Response: 5 - Oriented Coma Scale Total: 15 Diagnostics - Vital Signs Vital Signs Temp Pulse Resp BP Pulse Ox 09/03/18 18:29 98.0 F 107 18 156/94 99 - Laboratory Lab Statement: Any lab studies that have been ordered have been reviewed, and results considered in the medical decision making process. Course/Dx - Course Course Of Treatment: Patient concerned he has a possible laceration to the inside of his belly button and that it might be infected. States last night navel started bleeding and leaking pus. No active bleeding or pus at this time. Denies trauma, fever, cough, sore throat, CP, SOB, N/V/D, abdominal pain , change in urine, change in BM. Medical history is none. Physical exam:No active bleeding or pus noted to umbilicus. No foul odor. Some mild erythema locally. No ecchymosis, extra warmth or indication of abscess noted. Abdomen soft nontender. Lung sounds clear to auscultation bilaterally. RRR. Vital signs within normal limits. Rx for Keflex. - Diagnoses Provider Diagnoses: Cellulitis Discharge - Sign-Out/Discharge Documenting (check all that apply): Patient Departure Patient Received Moderate/Deep Sedation with Procedure: No - Discharge Plan Condition: Stable Disposition: HOME Prescriptions: Cephalexin CAP* [Keflex CAP*] 500 mg PO TID 10 Days #30 cap Patient Education Materials: Cellulitis (ED) Forms: *Gen. Provider Communication Referrals: Fernando Pena MD [Primary Care Provider] - Additional Instructions: Keep navel clean and apply antibiotic ointment regularly. Take antibiotics as directed by mouth. Return to the ED for any new or worsening symptoms. - Billing Disposition and Condition Condition: STABLE Disposition: Home
[2018-09-03 20:39] VITALS: BP 0/0
--- NOTE | 2018-09-06 08:01 | PN ---
Progress Note - Progress Note Date of Service: 09/03/18 Note: The patient's urine culture final grew MRSA negative and staph aureus negative Peptostreptococcus anaerobius postive Patient placed on keflex prior to discharge likely will cover organism. nothing further
== END 2018-09-03 20:25 | disposition home or self-care (01) ==
LOC: ED 18:28
DX: L03.316 Cellulitis of umbilicus (principal); F17.210 Nicotine dependence, cigarettes, uncomplicated; Z87.442 Personal history of urinary calculi
CPT/HCPCS: 87070; 87076; 87205; 87640; 87641; 99283; A9270-GY

== ENCOUNTER 2019-05-05 18:47 | Emergency (ER) | payer SELFPAY ==
[2019-05-05] MEDS ORDERED: NS 0.9% 1000 ML** 1,000 ML IV ONE (19:14)
[2019-05-05] MEDS ORDERED: Ondansetron INJ* 2 MG/ML VIAL IV ONE (19:14)
[2019-05-05] MEDS ORDERED: Morphine 10 MG/ML VIAL (1 ml) IV ONE (19:14)
[2019-05-05] MEDS ORDERED: Ketorolac INJ* 30 MG/ML 1 ML VIAL IV PUSH ONE (19:14)
--- NOTE | 2019-05-05 19:20 | ED ---
GI/ HPI - HPI Summary HPI Summary: The patient is a 29 y/o M presenting to [facility] with a chief complaint of sudden onset right flank pain at 1300 yesterday. He reports known history of smaller kidney stones and one larger one diagnosed 6-7 months ago. He has been primarily free from pain since then until yesterday. He is concerned that the larger stone is beginning to pass. He endorses increased urinary frequency, but he denies any fevers, chills, nausea or vomiting. He has used Ibuprofen and heat application to some relief of the pain. Currently, the constant sharp pain is rated 9/10 in severity. PMHx: chiari malformation with surgery, migraines. Heavy every day smoker, rare EtOH, no substance use. Medications reviewed. Allergies noted. - History of Current Complaint Chief Complaint: EDFlankPain Time Seen by Provider: 05/05/19 19:10 Stated Complaint: KIDNEY STONES PER PT Hx Obtained From: Patient Onset/Duration: Started Hours Ago - 1300 yesterday, Still Present Timing: Constant Severity: Severe Current Severity: Severe Pain Intensity: 9 Location of Pain: Flank - right Pain Characteristics: Sharp Associated Signs and Symptoms: Negative: Nausea, Vomiting, Fever, Chills, Other : - chills Aggravating Factor(s): Nothing Alleviating Factor(s): Medication - Ibuprofen, Heat - Allergy/Home Medications Allergies/Adverse Reactions: Allergies Allergy/AdvReac Type Severity Reaction Status Date / Time bee venom protein (honey bee) Allergy Severe Anaphylatic Verified 09/03/18 18:31 Shock rizatriptan [From Maxalt] Allergy Intermediate See Comment Verified 09/03/18 18: 31 sumatriptan [From Imitrex] Allergy Intermediate See Comment Verified 09/03/18 18 :31 latex Allergy Mild Rash Verified 09/03/18 18:31 PMH/Surg Hx/FS Hx/Imm Hx Endocrine/Hematology History: Denies: Hx Anticoagulant Therapy, Hx Bone Marrow Disease, Hx Diabetes, Hx Sickle Cell Disease, Hx Thyroid Disease, Hx Anemia Cardiovascular History: Denies: Hx Congestive Heart Failure, Hx Hypertension, Hx Pacemaker/ICD Respiratory History: Reports: Other Respiratory Problems/Disorders Denies: Hx Asthma, Hx Chronic Obstructive Pulmonary Disease (COPD) History: Reports: Hx Kidney Stones - RIGHT KIDNEY, Other Problems/ Disorders - HX OF SCROTAL SEBACEOUS CYSTS Denies: Hx Dialysis, Hx Renal Disease Sensory History: Reports: Hx Contacts or Glasses - GLASSES Denies: Hx Cataracts, Hx Glaucoma, Hx Hearing Aid Opthamlomology History: Reports: Hx Contacts or Glasses - GLASSES Denies: Hx Cataracts, Hx Glaucoma Neurological History: Reports: Hx Migraine - NOT RECENT, Other Neuro Impairments /Disorders - CHIARI MALFORMATION, SURGERY 11/16 Denies: Hx Dementia, Hx Seizures Psychiatric History: Reports: Hx Substance Abuse Denies: Hx Panic Disorder - Surgical History Surgical History: Yes Surgery Procedure, Year, and Place: SURGERY FOR CHIARI MALFORMATION 11/2011 [facility] [place]. LAMINECTOMY AND CRANIECTOMY 11/16 [facility] [place] ;. EXCISION OF SCROTAL SEBACEOUS CYSTS 2014 [facility] [place] Hx Anesthesia Reactions: Yes - POST BRAIN SURG- SEVERE N/V - Immunization History Date of Tetanus Vaccine: 9 years ago Date of Influenza Vaccine: never Infectious Disease History: No Infectious Disease History: Denies: Hx Hepatitis, Hx Human Immunodeficiency Virus (HIV), Traveled Outside the [place] in Last 30 Days - Family History Known Family History: Positive: Cardiac Disease, Diabetes, Seizure Disorder - epilepsy - Social History Alcohol Use: Rare Alcohol Amount: 1-2 YR Substance Use Type: Reports: None Substance Use Comment - Amount & Last Used: 4-5 10 OZ SODA/DAY Hx Tobacco Use: Yes Smoking Status (MU): Heavy Every Day Tobacco Smoker Type: Cigarettes Amount Used/How Often: 5-6/DAY FOR 10 YRS Length of Time of Smoking/Using Tobacco: 10 YRS Have You Smoked in the Last Year: Yes Review of Systems Negative: Fever, Chills Negative: Vomiting, Nausea Positive: frequency - increased, flank pain - right All Other Systems Reviewed And Are Negative: Yes Physical Exam - Summary Physical Exam Summary: Appearance: Well-appearing, Morbidly obese male lying in stretcher, Doesnt appear to be suffering from colicky pain Skin: Warm, dry, no obvious rash Eyes: sclera anicteric, no conjunctival pallor ENT: mucous membranes moist, pharynx appears normal Neck: Supple, nontender Respiratory: Clear to auscultation, no signs of respiratory distress Cardiovascular: Normal S1, S2. No murmurs. Normal distal pulses in tibial and radial bilaterally. Abdomen: Soft, nontender, normal active bowel sounds present Musculoskeletal: Normal, Strength/ROM Intact Neurological: A&Ox3, awake and alert, mentation is normal, speech is fluent and appropriate Psychiatric: affect is normal, does not appear anxious or depressed Triage Information Reviewed: Yes Vital Signs On Initial Exam: Initial Vitals Temp Pulse Resp BP Pulse Ox 98.9 F 111 18 157/98 97 05/05/19 18:49 05/05/19 18:49 05/05/19 18:49 05/05/19 18:49 05/05/19 18:49 Vital Signs Reviewed: Yes Procedures - Sedation Patient Received Moderate/Deep Sedation with Procedure: No Diagnostics - Vital Signs Vital Signs Temp Pulse Resp BP Pulse Ox 05/05/19 18:49 98.9 F 111 18 157/98 97 - Laboratory Result Diagrams: 05/05/19 19:22 05/05/19 19:22 Lab Statement: Any lab studies that have been ordered have been reviewed, and results considered in the medical decision making process. - Ultrasound Renal US Ultrasound Interpretation Completed By: Radiologist Summary of Ultrasound Findings: Impression: 1. Right nephrolithiasis without hydronephrosis. 2. Appearance is similar to the comparison study. ED physician has reviewed this imaging report. Re-Evaluation - Re-Evaluation First Eval Re-Evaluation Time: 22:05 Change: Improved Comment: We discussed results and plan for discharge. GIGU Course/Dx - Course Course Of Treatment: 29 y/o M who has known history of multiple kidney stones presenting with constant sharp right flank pain onset yesterday at 1300. Noted increased urinary frequency without any fevers, chills, nausea, or vomiting. Physical exam reveals that patient is a morbidly obese male lying in the stretcher without appearance of suffering due to colicky pain. Blood work obtained to reveal glucose of 128, ALT of 63, and alkaline phosphatase of 106. Urinalysis negative for blood. Patient administered IV fluids, Zofran for nausea , and Morphine and Toradol for pain. Renal ultrasound reveals right nephrolithiasis without hydronephrosis similar to previous study. Patient is feeling better, and he is safe for discharge. Patient understands and agrees with plan. Dx of low back pain. - Diagnoses Provider Diagnoses: Low back pain Discharge ED - Sign-Out/Discharge Documenting (check all that apply): Patient Departure - Patient will be discharged home. - Discharge Plan Condition: Good Disposition: HOME Patient Education Materials: Low Back Strain (ED) Referrals: Midura,Fernando T, MD [Primary Care Provider] - 1 Week (if not improving) - Billing Disposition and Condition Condition: GOOD Disposition: Home - Attestation Statements Document Initiated by Martha: Yes Documenting Scribe: Erika Hughes Provider For Whom Martha is Documenting (Include Credential): Dr. Gurjit Quinn MD Scribe Attestation: Erika Vargas scribed for Dr. Gurjit Quinn MD on 05/06/19 at 0559. Scribe Documentation Reviewed: Yes Provider Attestation: The documentation as recorded by the Erika dias accurately reflects the service I personally performed and the decisions made by me, Dr. Gurjit Quinn MD Status of Scribe Document: Viewed
[2019-05-05 19:28] LABS: ABS Basophils 0.1 10^3/ul (0-0.2); ABS Eosinophils 0.3 10^3/ul (0-0.6); ABS Lymphocytes 2.1 10^3/ul (1.0-4.8); ABS Monocytes 0.6 10^3/ul (0-0.8); ABS Neutrophils 5.3 10^3/ul (1.5-7.7); Hematocrit 42 % (42-52); Hemoglobin 14.6 g/dL (14.0-18.0); Lymphocyte % 25.1 %; Mean Corpuscular HGB Conc 35 g/dL (31-36); Mean Corpuscular Hemoglobin 32 pg (27-31); Mean Corpuscular Volume 93 fL (80-94); Mean Platelet Volume 7.2 fL (7.4-10.4); Nucleated Red Blood Cells % 0.1; Platelet Count 280 10^3/uL (150-450); Red Cell Distribution Width 13 % (10-15); White Blood Count 8.4 10^3/uL (3.5-10.8)
[2019-05-05 19:45] LABS: Albumin 4.1 g/dL (3.2-5.2); Albumin/Globulin Ratio 1.4 (1-3); BUN/Creatinine Ratio 16.4 (8-20); Calcium 8.7 mg/dL (8.6-10.3); EGFR African American 153.7 (>60); Globulin 2.9 g/dL (2-4); Total Bilirubin 0.3 mg/dL (0.2-1.0)
[2019-05-05 20:34] LABS: Urine Appearance Clear; Urine Bilirubin Negative (Negative); Urine Blood Negative (Negative); Urine Color Yellow; Urine Glucose Negative (Negative); Urine Ketones Negative (Negative); Urine Nitrite Negative (Negative); Urine Protein Negative (Negative); Urine Specific Gravity 1.027 (1.010-1.030); Urine Urobilinogen Positive (Negative)
[2019-05-05 20:40] LABS: Potassium 3.9 mmol/L (3.5-5.0)
[2019-05-05 22:22] VITALS: BP 141/78
== END 2019-05-05 22:20 | disposition home or self-care (01) ==
LOC: ED 18:47
DX: M54.5 Low back pain (principal); N20.0 Calculus of kidney; F17.210 Nicotine dependence, cigarettes, uncomplicated; Z88.8 Allergy status to other drugs, medicaments and biological substances; Z91.040 Latex allergy status
CPT/HCPCS: 36415; 76775; 80053; 81003; 85025; 96361; 96374; 96375; 99282; J1885; J2270; J2405

== ENCOUNTER 2023-02-07 18:26 | Observation (INO) ==
[2023-02-08 00:40] LABS: ABS Eosinophils 0.3 10^3/uL (0.0-0.5); ABS Lymphocytes 1.9 10^3/uL (1.0-4.8); ABS Monocytes 0.9 10^3/uL (0.0-1.1); ABS Neutrophils 6.4 10^3/uL (1.5-7.6); ABS Nucleated RBC 0.01 10^3/ul; Eosinophil % 3.6 %; Hematocrit 42.4 % (38-53); Hemoglobin 14.9 g/dL (13.2-16.3); Mean Corpuscular Hemoglobin 33.3 pg (27-33); Mean Corpuscular Hgb Conc 35.2 g/dL (31-36); Mean Corpuscular Volume 94.4 fL (80-97); Mean Platelet Volume 7.2 fL (7.5-11.2); Nucleated Red Blood Cells % 0.1 /100 WBC (0.0-0.4); Platelet Count 187 10^3/uL (150-450); Red Blood Count 4.49 10^6/uL (4.06-5.63); Red Cell Distribution Width 13.5 % (12-17); White Blood Count 9.6 10^3/uL (3.6-10.2)
[2023-02-08 01:52] LABS: Albumin 4.2 g/dL (3.2-5.2); Albumin/Globulin Ratio 1.1 (1-3); C Reactive Protein 71.76 mg/L (<8.01); Calcium 8.9 mg/dL (8.6-10.3); Creatinine, Serum 0.86 mg/dL (0.67-1.17); Globulin 3.7 g/dL (2-4); Total Bilirubin 0.5 mg/dL (0.2-1.0); Total Protein 7.9 g/dL (6.4-8.9); eGFR CKD-EPI 117.3 (>60)
[2023-02-08 02:18] LABS: Potassium 4.1 mmol/L (3.5-5.0)
[2023-02-08] MEDS ORDERED: Piperacillin/Tazobac 3.375 BAG 3.375 GM/100 ML BAG IV ONE (02:33)
[2023-02-08] MEDS ORDERED: Iodixanol (CONTRAST) 320 MG/ML 100 ML SDV IV ONE (03:43)
[2023-02-08] MEDS ORDERED: Vancomycin per Pharmacy 1 EA NOTE FOLLOW UP PRN (06:37)
[2023-02-08] MEDS ORDERED: Vancomycin 2,000 MG in NS 0.9% 500 ml BAG 500 ML IVPB ONE (07:00)
[2023-02-08] MEDS ORDERED: Dextrose 50% Syringe 50 ml 25 GM/50 ML SYRINGE IV PUSH PRN (07:00)
[2023-02-08] MEDS ORDERED: Heparin 5000 UNITS/ML 1 mL VIAL SUBCUT SCH (09:00)
[2023-02-08] MEDS ORDERED: Piperacillin/Tazobac 3.375 BAG 3.375 GM/100 ML BAG IV SCH (10:00)
[2023-02-08] MEDS ORDERED: Vancomycin 1,250 MG in NS 0.9% 250 ml 250 ML IVPB SCH (14:00)
[2023-02-08 14:36] VITALS: BP 110/81
[2023-02-09] MEDS ORDERED: Vancomycin Trough Check NOTE FOLLOW UP ONE (05:30)
== END 2023-02-08 16:36 | disposition left against medical advice (07) ==
LOC: ED 18:26 → EDHOLD 18:26
PROVIDERS: ADMIT Hospitalist; ATTEND Hospitalist

== ENCOUNTER 2023-09-13 11:10 | Observation (INO) ==
[2023-09-13] MEDS ORDERED: ceFAZolin *3* GM in NS PREMIX 3 GM/100 ML BAG IV ONE (11:49)
[2023-09-13] MEDS ORDERED: Naloxone 0.4 mg VIAL 0.4 mg/ml 1 ml VIAL IV PRN (12:40)
[2023-09-13] MEDS ORDERED: Metoclopramide 5 MG/ML VIAL (10 mg) IV PRN (12:40)
[2023-09-13] MEDS ORDERED: Bupivacaine 0.25% SDV 30 ML ONE (12:41)
[2023-09-13] MEDS ORDERED: Lidocaine 1% w EPI 1:200,000 SDV 30 ML VIAL ONE (12:41)
[2023-09-13] MEDS ORDERED: Rocuronium 50 mg VIAL 10 mg/ml 5 ml VIAL (50 mg) ONE (12:54)
[2023-09-13] MEDS ORDERED: Lidocaine 2% PF 5 ML VIAL ONE (12:54)
[2023-09-13] MEDS ORDERED: Succinylcholine 200 mg VIAL 20 mg/ml 10 ml VIAL (200 mg) ONE (12:54)
[2023-09-13] MEDS ORDERED: Propofol 10 MG/ML 20 ML BTL ONE ×2 (12:54→13:27)
[2023-09-13] MEDS ORDERED: fentaNYL 250 mcg/5 ml 50 MCG/ML 5 ml VIAL (250 MCG) ONE (12:54)
[2023-09-13] MEDS ORDERED: Dexamethasone IV 4 MG/ML VIAL 1 ml VIAL ONE ×2 (12:54→14:04)
[2023-09-13] MEDS ORDERED: Midazolam 2 mg/2 ml VIAL 1 mg/ml 2 ml VIAL (2 mg) ONE (12:54)
[2023-09-13] MEDS ORDERED: Ondansetron 4 mg VIAL 2 MG/ML 2 ml VIAL ONE ×2 (12:54→16:49)
[2023-09-13 12:57] LABS: Hematocrit 42.2 % (38-53); Hemoglobin 14.3 g/dL (13.2-16.3); Mean Corpuscular Hemoglobin 31.2 pg (27-33); Mean Corpuscular Hgb Conc 33.8 g/dL (31-36); Mean Corpuscular Volume 92.1 fL (80-97); Mean Platelet Volume 7.4 fL (7.5-11.2); Platelet Count 242 10^3/uL (150-450); Red Blood Count 4.58 10^6/uL (4.06-5.63); White Blood Count 4.6 10^3/uL (3.6-10.2)
[2023-09-13 13:44] LABS: C Reactive Protein 9.61 mg/L (<8.01); Calcium 8.7 mg/dL (8.6-10.3); Creatinine, Serum 0.83 mg/dL (0.67-1.17); Potassium 4.2 mmol/L (3.5-5.0); eGFR CKD-EPI 118.5 (>60)
[2023-09-13] MEDS ORDERED: Acetaminophen IV 1 GM/100ML 1,000 MG/100 ML BAG IV ONE (14:27)
[2023-09-13] MEDS ORDERED: fentaNYL 100 mcg/2 ml 50 MCG/ML VIAL ONE ×2 (14:44→16:49)
[2023-09-13 15:27] LABS: Erythrocyte Sed Rate 38 mm/Hr (0-14)
[2023-09-13] MEDS ORDERED: Magnesium Hydroxide LIQ 30 ML UDC PO PRN (15:52)
[2023-09-13] MEDS ORDERED: Lactulose 30 ml UDC PO PRN (15:52)
[2023-09-13] MEDS ORDERED: Ondansetron 4 mg VIAL 2 MG/ML 2 ml VIAL IV PRN (15:52)
[2023-09-13] MEDS ORDERED: Ondansetron ODT 4 mg TAB 4 MG TAB PO PRN (15:52)
[2023-09-13] MEDS ORDERED: Phenylephrine IV 10 MG/ML 1 ml VIAL ONE (16:15)
[2023-09-13] MEDS: Ondansetron 4 mg VIAL 2 MG/ML 2 ml VIAL IV PRN (16:52)
[2023-09-13] MEDS: fentaNYL 100 mcg/2 ml 50 MCG/ML VIAL IV PRN (16:53)
[2023-09-13] MEDS ORDERED: Albuterol HFA INHALER 8 gm MDI INH PRN (17:06)
[2023-09-13] MEDS: Buffered Lidocaine 1% SYRIN 1 ml INTRADERM ONE (17:32)
[2023-09-13] MEDS: Scopolamine 1 mg/72hr PATCH TRANSDERM ONE (17:32)
[2023-09-13] MEDS: Lactated Ringers 1000 ml BAG 1,000 ML IV SCH ×2 (17:32→18:09)
[2023-09-13] MEDS: Magnesium Hydroxide LIQ 30 ML UDC PO SCH (20:41)
[2023-09-13] MEDS: ceFAZolin 1 GM ADVAN 1 GM in NS 0.9% 50 ML 50 ML IVPB SCH (23:17)
[2023-09-14] MEDS: Metformin ER 500 mg TAB (NF) PO SCH (03:54)
[2023-09-14 05:33] LABS: ABS Basophils 0.1 10^3/uL (0.0-0.1); ABS Lymphocytes 0.9 10^3/uL (1.0-4.8); ABS Monocytes 0.7 10^3/uL (0.0-1.1); ABS Neutrophils 6.2 10^3/uL (1.5-7.6); ABS Nucleated RBC 0.01 10^3/ul; Eosinophil % 0.2 %; Hematocrit 41.1 % (38-53); Hemoglobin 14.3 g/dL (13.2-16.3); Mean Corpuscular Hemoglobin 31.7 pg (27-33); Mean Corpuscular Hgb Conc 34.7 g/dL (31-36); Mean Corpuscular Volume 91.4 fL (80-97); Mean Platelet Volume 7.9 fL (7.5-11.2); Nucleated Red Blood Cells % 0.1 %/100WBC (0.0-0.8); Platelet Count 243 10^3/uL (150-450); Red Blood Count 4.49 10^6/uL (4.06-5.63); Red Cell Distribution Width 13.8 % (12-17); White Blood Count 7.9 10^3/uL (3.6-10.2)
[2023-09-14 05:49] LABS: C Reactive Protein 10.42 mg/L (<8.01); Calcium 8.3 mg/dL (8.6-10.3); Creatinine, Serum 0.76 mg/dL (0.67-1.17); Potassium 4.8 mmol/L (3.5-5.0); eGFR CKD-EPI 121.7 (>60)
[2023-09-14] MEDS: Vitamin THERAPEUTIC TAB PO SCH (08:56)
[2023-09-14 13:29] VITALS: BP 131/72
== END 2023-09-14 17:00 | disposition home or self-care (01) ==
LOC: SSU 11:10 → OR 11:10
PROVIDERS: ADMIT Orthopaedic Surgery Hand Surgery; ATTEND Orthopaedic Surgery Hand Surgery